=== PATIENT | female | born 1960 ===

== ENCOUNTER → 2016-12-05 | Outpatient (REF) | payer OTHER ==
[2016-12-05 14:28] LABS: VITAMIN B12 LEVEL 740 PG/ML (247-911)
[2016-12-05 14:42] LABS: BLOOD UREA NITROGEN 11 MG/DL (7-18); CREATININE FOR GFR 0.71 MG/DL (0.55-1.02); GLOMERULAR FILTRATION RATE > 60.0 (>51)
[2016-12-10 00:11] LABS: VITAMIN E LEVEL 10.6 mg/L (5.3-16.8)
== END ==
LOC: M LABNEURO 11:11
PROVIDERS: ATTEND Psychiatry & Neurology Neurology
DX: G43.909 Migraine, unspecified, not intractable, without status migrainosus (principal); Z13.1 Encounter for screening for diabetes mellitus